=== PATIENT | male | born 1995 | race African-American/Black ===

== ENCOUNTER 2017-11-10 21:37 | Emergency (ER) | payer MEDICAID ==
[~2017-11-10] VITALS: Ht 180.3 cm; Wt 84.0 kg
[2017-11-11] MEDS ORDERED: LIDOCAINE HCL 1% 20ML VIAL (Pyxis) INJ INFIL ONE (01:00)
[2017-11-11] MEDS ORDERED: LIDOCAINE HCL/PF 1% 10 MG/ML 30ML VIAL INFIL SCH (01:11)
[2017-11-11 02:24] VITALS: BP 115/80
== END 2017-11-11 02:27 | disposition home or self-care (01) ==
LOC: ER 21:37
DX: S31.21XA Laceration without foreign body of penis, initial encounter (principal); X58.XXXA Exposure to other specified factors, initial encounter; Y93.89 Activity, other specified; Y92.9 Unspecified place or not applicable
CPT/HCPCS: 12001; 99283; J3490; Z7610